=== PATIENT | female | born 1990 | race Caucasian/White ===

== ENCOUNTER 2016-07-22 19:38 | Emergency (ER) | payer MEDICAID ==
[~2016-07-22] VITALS: Ht 154.9 cm; Wt 78.6 kg
[2016-07-22 20:11] VITALS: BP 119/86
== END 2016-07-22 23:30 | disposition left against medical advice (07) ==
LOC: ER 19:42
DX: M25.562 Pain in left knee (principal); M25.561 Pain in right knee; M79.671 Pain in right foot; M79.672 Pain in left foot; Z53.21 Procedure and treatment not carried out due to patient leaving prior to being seen by health care provider

== ENCOUNTER 2017-03-03 09:07 | Emergency (ER) | payer MEDICAID ==
[~2017-03-03] VITALS: Ht 157.5 cm; Wt 84.4 kg
[2017-03-03 09:47] LABS: Basophils # (auto) 0 uL; Basophils % (auto) 0.6 % (0.0-2.0); Eosinophils # (auto) 0.1 uL; Eosinophils % (auto) 1.4 % (0.0-7.0); Hematocrit 38.9 % (36.0-46.0); Lymphocytes # (auto) 2.3 uL; Mean Corpuscular Hemoglobin 28.9 pg (28.0-32.0); Mean Corpuscular Hgb Conc. 33.4 g/dL (32.0-36.0); Mean Corpuscular Volume 86.7 fL (80.0-100.0); Mean Platelet Volume 8.2 fL (6.9-10.8); Monocytes # (auto) 0.6 uL; Monocytes % (auto) 6.9 % (0.0-12.0); Neutrophils # (auto) 5.1 uL; Neutrophils % (auto) 63.1 % (37.0-80.0); Nucleated Red Blood Cells % 0.1 %; Platelet Count (auto) 205 10^3/uL (140-450); Red Cell Distribution Width 13.1 % (11.8-14.3); White Blood Cell 8.1 10^3/uL (4.4-10.8)
[2017-03-03 11:46] VITALS: BP 114/72
== END 2017-03-03 12:06 | disposition home or self-care (01) ==
LOC: ER 09:07
DX: O20.0 Threatened abortion (principal); Z3A.01 Less than 8 weeks gestation of pregnancy
CPT/HCPCS: 36415; 76801; 76817; 84702; 85025

== ENCOUNTER 2017-09-04 11:05 | Observation (INO) | payer MEDICAID | END 2017-09-04 12:42 | disposition home or self-care (01) | DRG 563 | LOC: LDRP 11:05 | PROVIDERS: ADMIT Obstetrics & Gynecology; ATTEND Obstetrics & Gynecology | DX: O60.03 Preterm labor without delivery, third trimester (principal); O26.893 Other specified pregnancy related conditions, third trimester; R10.2 Pelvic and perineal pain; Z3A.32 32 weeks gestation of pregnancy | CPT/HCPCS: 59025; 81002; G0378 ==

== ENCOUNTER 2017-10-06 15:00 | Observation (INO) | payer BC, MEDICAID ==
[~2017-10-06] VITALS: Ht 157.5 cm; Wt 91.2 kg
[2017-10-06] MEDS ORDERED: PREN-96 PO (15:33)
[2017-10-06 16:54] LABS: Basophils # (auto) 0 uL; Basophils % (auto) 0.3 % (0.0-2.0); Lymphocytes # (auto) 2.1 uL; Neutrophils # (auto) 5.5 uL
[2017-10-06 16:56] LABS: Eosinophils # (auto) 0.1 uL; Eosinophils % (auto) 0.6 % (0.0-7.0); Hematocrit 33.9 % (36.0-46.0); Hemoglobin 11.2 g/dL (12.2-16.2); Lymphocytes % (auto) 24.4 % (10.0-50.0); Mean Corpuscular Hemoglobin 26.6 pg (28.0-32.0); Mean Corpuscular Volume 80.5 fL (80.0-100.0); Monocytes # (auto) 0.8 uL; Monocytes % (auto) 9.3 % (0.0-12.0); Neutrophils % (auto) 65.4 % (37.0-80.0); Platelet Count (auto) 219 10^3/uL (140-450); Red Cell Distribution Width 14.6 % (11.8-14.3); White Blood Cell 8.4 10^3/uL (4.4-10.8)
[2017-10-06 17:00] LABS: Urine Bacteria NONE SEEN /hpf (None Seen); Urine Blood Negative /uL (Negative); Urine Mucus FEW (None Seen); Urine Specific Gravity 1.022 (1.001-1.035); Urine WBC 1 /hpf (0 - 5)
[2017-10-06 17:07] LABS: INR 0.94 (0.9-1.15); Partial Thromboplastin Time 25.4 sec (23.78-33.04); Prothrombin Time 10.1 sec (9.27-12.13)
[2017-10-06 17:19] LABS: Alanine Aminotransferase 18 U/L (13-56); Albumin 2.4 g/dL (3.4-5.0); Alkaline Phosphatase 149 U/L (45-117); Anion Gap 8 (5-15); Aspartate Aminotransferase 19 U/L (15-37); BUN/Creatinine Ratio 17.5; Bilirubin, Total < 0.1 mg/dL (0.2-1.0); Blood Urea Nitrogen 7 mg/dL (7-18); Calcium 8.6 mg/dL (8.5-10.1); Carbon Dioxide 23 mmol/L (21-32); Chloride 110 mmol/L (98-107); GFR African American 243 mL/min; GFR Non-African American 201 mL/min; Glucose 87 mg/dL (74-106); Sodium 141 mmol/L (136-145); Total Protein 6.5 g/dL (6.4-8.2); Uric Acid 4.2 mg/dL (2.6-6.0)
== END 2017-10-06 17:40 | disposition home or self-care (01) | DRG 566 ==
LOC: EDBD → LDRP 15:00
PROVIDERS: ADMIT Obstetrics & Gynecology; ATTEND Obstetrics & Gynecology
DX: O26.893 Other specified pregnancy related conditions, third trimester (principal); R10.2 Pelvic and perineal pain; R06.02 Shortness of breath; O12.03 Gestational edema, third trimester; M53.3 Sacrococcygeal disorders, not elsewhere classified; Z3A.37 37 weeks gestation of pregnancy; Z87.891 Personal history of nicotine dependence
CPT/HCPCS: 36415; 59025; 80053; 81001; 81002; 84550; 85025; 85610; 85730; G0378

== ENCOUNTER 2017-10-09 17:45 | Observation (INO) | payer BC, MEDICAID ==
[~2017-10-09 17:45] MED LIST: PREN-96 PO
[2017-10-09 18:50] LABS: Basophils # (auto) 0 uL; Basophils % (auto) 0.3 % (0.0-2.0); Eosinophils # (auto) 0 uL; Lymphocytes # (auto) 1.7 uL; Red Blood Cells 3.94 10^6/uL (4.0-5.20); White Blood Cell 7.4 10^3/uL (4.4-10.8)
[2017-10-09 18:52] LABS: Eosinophils % (auto) 0.5 % (0.0-7.0); Hematocrit 31.2 % (36.0-46.0); Hemoglobin 10.5 g/dL (12.2-16.2); Lymphocytes % (auto) 22.8 % (10.0-50.0); Mean Corpuscular Hemoglobin 26.5 pg (28.0-32.0); Mean Corpuscular Hgb Conc. 33.5 g/dL (32.0-36.0); Mean Corpuscular Volume 79.2 fL (80.0-100.0); Monocytes # (auto) 0.6 uL; Monocytes % (auto) 8.1 % (0.0-12.0); Neutrophils % (auto) 68.3 % (37.0-80.0); Platelet Count (auto) 211 10^3/uL (140-450); Red Cell Distribution Width 14.7 % (11.8-14.3)
[2017-10-09 18:55] LABS: Urine Bacteria NONE SEEN /hpf (None Seen); Urine Blood Negative /uL (Negative); Urine Mucus FEW (None Seen); Urine Specific Gravity 1.026 (1.001-1.035); Urine WBC 2 /hpf (0 - 5)
[2017-10-09 18:57] LABS: INR 0.94 (0.9-1.15); Partial Thromboplastin Time 26.2 sec (23.78-33.04); Prothrombin Time 10.1 sec (9.27-12.13)
[2017-10-09 19:24] LABS: Albumin 2.4 g/dL (3.4-5.0); BUN/Creatinine Ratio 9.8; Bilirubin, Total 0.2 mg/dL (0.2-1.0); Calcium 8.1 mg/dL (8.5-10.1); Potassium 3.5 mmol/L (3.5-5.1); Total Protein 6.3 g/dL (6.4-8.2); Uric Acid 4.1 mg/dL (2.6-6.0)
== END 2017-10-10 19:55 | disposition home or self-care (01) | DRG 566 ==
LOC: EDBD → LDRP 17:45 → UNDODISOB 21:10 → LDRP 10-10 14:13
PROVIDERS: ADMIT Specialist; ATTEND Specialist
DX: O13.3 Gestational [pregnancy-induced] hypertension without significant proteinuria, third trimester (principal); Z3A.37 37 weeks gestation of pregnancy
CPT/HCPCS: 36415; 59025; 76818; 80053; 81001; 81002; 84550; 85025; 85610; 85730; G0378

== ENCOUNTER 2017-10-11 06:00 | Observation (INO) | payer BC, MEDICAID ==
[2017-10-11 07:09] LABS: Protein, Urine 48.9 mg/dL (0.0-11.9)
[2017-10-11 07:13] LABS: 24 Hr. Total Protein, Urine 391.2 mg/24 Hr (<149.1)
== END 2017-10-11 07:50 | disposition home or self-care (01) | DRG 566 ==
LOC: EDBD → LDRP 06:00
PROVIDERS: ADMIT Specialist; ATTEND Specialist
DX: O13.3 Gestational [pregnancy-induced] hypertension without significant proteinuria, third trimester (principal); Z87.891 Personal history of nicotine dependence; Z3A.38 38 weeks gestation of pregnancy
CPT/HCPCS: 59025; 81002; 84156; G0378

== ENCOUNTER 2017-10-13 09:05 | Observation (INO) | payer BC, MEDICAID ==
[2017-10-13 10:15] LABS: Basophils # (auto) 0 uL; Basophils % (auto) 0.5 % (0.0-2.0); Eosinophils # (auto) 0.1 uL; Eosinophils % (auto) 0.8 % (0.0-7.0); Lymphocytes # (auto) 1.7 uL
[2017-10-13 10:18] LABS: Hematocrit 32.1 % (36.0-46.0); Hemoglobin 10.5 g/dL (12.2-16.2); Lymphocytes % (auto) 23.2 % (10.0-50.0); Mean Corpuscular Hgb Conc. 32.6 g/dL (32.0-36.0); Mean Corpuscular Volume 79.6 fL (80.0-100.0); Monocytes # (auto) 0.6 uL; Monocytes % (auto) 8.5 % (0.0-12.0); Neutrophils # (auto) 4.9 uL; Nucleated Red Blood Cells % 0.1 %; Platelet Count (auto) 206 10^3/uL (140-450); Red Blood Cells 4.03 10^6/uL (4.0-5.20); Red Cell Distribution Width 14.4 % (11.8-14.3); White Blood Cell 7.3 10^3/uL (4.4-10.8)
[2017-10-13 10:33] LABS: Urine Bacteria FEW /hpf (None Seen); Urine Blood Negative /uL (Negative); Urine Mucus FEW (None Seen); Urine Specific Gravity 1.025 (1.001-1.035); Urine WBC 60 /hpf (0 - 5)
[2017-10-13 10:34] LABS: INR 0.96 (0.9-1.15); Partial Thromboplastin Time 26.6 sec (23.78-33.04); Prothrombin Time 10.3 sec (9.27-12.13)
[2017-10-13 10:40] LABS: Albumin 2.3 g/dL (3.4-5.0); BUN/Creatinine Ratio 18.4; Bilirubin, Total 0.3 mg/dL (0.2-1.0); Calcium 7.8 mg/dL (8.5-10.1); Potassium 4.1 mmol/L (3.5-5.1); Total Protein 6.1 g/dL (6.4-8.2); Uric Acid 4.4 mg/dL (2.6-6.0)
== END 2017-10-13 11:35 | disposition home or self-care (01) | DRG 782 ==
LOC: EDBD → LDRP 09:05
PROVIDERS: ADMIT Obstetrics & Gynecology; ATTEND Obstetrics & Gynecology
DX: O13.3 Gestational [pregnancy-induced] hypertension without significant proteinuria, third trimester (principal); Z3A.38 38 weeks gestation of pregnancy
CPT/HCPCS: 36415; 59025; 80053; 81001; 81002; 84550; 85025; 85610; 85730; G0378

== ENCOUNTER 2017-10-14 21:46 | Observation (INO) | payer BC, MEDICAID | END 2017-10-15 00:02 | disposition home or self-care (01) | DRG 781 | LOC: EDBD → LDRP 21:46 | PROVIDERS: ADMIT Specialist; ATTEND Specialist | DX: O26.893 Other specified pregnancy related conditions, third trimester (principal); Z3A.38 38 weeks gestation of pregnancy; Z87.891 Personal history of nicotine dependence | CPT/HCPCS: 59025; 81002; G0378 ==

== ENCOUNTER 2017-10-15 21:04 | Inpatient (IN) | payer BC, MEDICAID ==
[~2017-10-15] VITALS: Ht 1 cm; Wt 0.5 kg
[2017-10-15] MEDS: LACTATED RINGER'S 1,000 ML IV SCH (21:07)
[2017-10-15] MEDS ORDERED: LACT. RINGERS/OXYTOCIN 20UNITS 1,000 ML IV SCH (21:07)
[2017-10-15] MEDS ORDERED: PHISODERM TOP SOLN 240ML BTL TOP PRN (21:15)
[2017-10-15] MEDS ORDERED: PENICILLIN G POT 5MIL/D5 50ML 50 ML IV ONE (21:15)
[2017-10-15] MEDS ORDERED: DERMOPLAST 60ML BOTTLE TOP PRN (21:15)
[2017-10-15] MEDS ORDERED: NALBUPHINE HCL 10 MG/1ml INJECTION IV PRN (21:15)
[2017-10-15] MEDS ORDERED: LIDOCAINE 2% (LOCAL ANESTH.) PF 5ml SDV ID ONE (21:15)
[2017-10-15] MEDS ORDERED: METHYLERGONOVINE MALEATE 0.2 MG/ML AMP IM PRN (21:15)
[2017-10-15] MEDS ORDERED: WITCH HAZEL-GLYCERIN PAD TOP PRN (21:15)
[2017-10-15 22:14] LABS: Alcohol, Urine < 3.0 mg/dL (0-5); Amphetamine Screen, Urine NEGATIVE (NEGATIVE); Barbiturate Scree,Urine NEGATIVE (NEGATIVE); Benzodiazephine Screen, Urine NEGATIVE (NEGATIVE); Cannabinoid Screen, Urine NEGATIVE (NEGATIVE); Cocaine Screen, Urine NEGATIVE (NEGATIVE); Opiate Scree,Urine NEGATIVE (NEGATIVE); Phencyclidine Screen, Urine NEGATIVE (NEGATIVE)
[2017-10-15 22:16] LABS: Albumin 2.3 g/dL (3.4-5.0); BUN/Creatinine Ratio 15.2; Bilirubin, Total 0.1 mg/dL (0.2-1.0); Calcium 8.4 mg/dL (8.5-10.1); INR 0.93 (0.9-1.15); Partial Thromboplastin Time 25.9 sec (23.78-33.04); Potassium 3.8 mmol/L (3.5-5.1); Total Protein 6.1 g/dL (6.4-8.2); Uric Acid 4.5 mg/dL (2.6-6.0)
[2017-10-15 22:20] LABS: Basophils # (auto) 0 uL; Basophils % (auto) 0.2 % (0.0-2.0); Eosinophils # (auto) 0.1 uL; Eosinophils % (auto) 0.7 % (0.0-7.0); Lymphocytes # (auto) 2.4 uL
[2017-10-15 22:22] LABS: Urine Bacteria FEW /hpf (None Seen); Urine Blood Negative /uL (Negative); Urine Mucus FEW (None Seen); Urine Specific Gravity 1.027 (1.001-1.035); Urine WBC 1 /hpf (0 - 5)
[2017-10-15 22:23] LABS: Hematocrit 30.4 % (36.0-46.0); Lymphocytes % (auto) 28.3 % (10.0-50.0); Mean Corpuscular Hemoglobin 26.3 pg (28.0-32.0); Mean Corpuscular Volume 79.6 fL (80.0-100.0); Monocytes # (auto) 0.7 uL; Monocytes % (auto) 8.5 % (0.0-12.0); Neutrophils # (auto) 5.2 uL; Neutrophils % (auto) 62.3 % (37.0-80.0); Nucleated Red Blood Cells % 0.1 %; Platelet Count (auto) 194 10^3/uL (140-450); Red Blood Cells 3.82 10^6/uL (4.0-5.20); Red Cell Distribution Width 15.1 % (11.8-14.3); White Blood Cell 8.4 10^3/uL (4.4-10.8)
[2017-10-15] MEDS: LABETALOL HCL 200 MG TAB PO SCH (23:04)
[2017-10-16] MEDS: PENICILLIN G POTASSIUM 2,500,000 UNITS in D5W 5% 50 ML IV SCH ×6 (02:01→21:17)
[2017-10-16] MEDS: LACTATED RINGER'S 1,000 ML IV SCH ×3 (07:00→22:00)
[2017-10-16] MEDS: LABETALOL HCL 200 MG TAB PO SCH ×2 (10:00→21:50)
[2017-10-16] MEDS ORDERED: hydrALAZINE HCL 20 MG/ML VL IV ONE (11:30)
[2017-10-16] MEDS ORDERED: LACT. RINGERS/OXYTOCIN 20UNITS 1,000 ML IV SCH (11:35)
[2017-10-16] MEDS ORDERED: TERBUTALINE SULFATE 1 MG/ML 1ML VIAL SC PRN (11:45)
[2017-10-16] MEDS: hydrALAZINE HCL 20 MG/ML VL IV PRN (15:05)
[2017-10-17] VITALS (32 sets, daily range): BP systolic 113–160; BP diastolic 55–101
[2017-10-17] MEDS: PENICILLIN G POTASSIUM 2,500,000 UNITS in D5W 5% 50 ML IV SCH (02:53)
[2017-10-17] MEDS ORDERED: hydrALAZINE HCL 20 MG/ML VL ONE (03:23)
[2017-10-17] MEDS: hydrALAZINE HCL 20 MG/ML VL IV PRN (03:29)
[2017-10-17] MEDS ORDERED: ePHEDrine SULFATE 50 MG/ML AMP IV ONE ×2 (03:30→05:00)
[2017-10-17] MEDS ORDERED: fentaNYL CITRATE 100 MCG/2 ML VL IV ONE (03:30)
[2017-10-17] MEDS ORDERED: NALOXONE HCL 0.4 MG/ML VIAL IV ONE ×2 (03:30→05:00)
[2017-10-17] MEDS ORDERED: fentaNYL W ROPIVACAINE 150 ML EPI SCH ×2 (03:30→05:00)
[2017-10-17] MEDS ORDERED: LIDOCAINE HCL 2 %PF INJ 10ML AMP IJ ONE (03:30)
[2017-10-17] MEDS ORDERED: NALOXONE HCL 0.4 MG/ML VIAL ONE (03:48)
[2017-10-17] MEDS ORDERED: ePHEDrine SULFATE 50 MG/ML AMP ONE (03:48)
[2017-10-17] MEDS ORDERED: MAGNESIUM SULFATE 100 ML IV ONE ×2 (03:49→04:00)
[2017-10-17] MEDS ORDERED: fentaNYL W ROPIVACAINE 150 ML EPI ONE (03:49)
[2017-10-17] MEDS ORDERED: MAGNESIUM SULFATE 40MG/ML 1,000 ML IV ONE (03:50)
[2017-10-17] MEDS ORDERED: SODIUM CHLORIDE 0.9% 500 ML IV PRN (04:53)
[2017-10-17] MEDS: MAGNESIUM SULFATE 40MG/ML 1,000 ML IV SCH ×2 (04:53→06:30)
[2017-10-17 05:07] LABS: RPR Non Reactive (Non Reactive)
[2017-10-17] MEDS ORDERED: LIDOCAINE 2%HCL (LOCAL ANESTH.) INJ 20ML MDV ONE (05:30)
[2017-10-17] MEDS: LACTATED RINGER'S 1,000 ML IV SCH (06:30)
[2017-10-17] MEDS ORDERED: ACETAMINOPHEN 325 MG TAB PO PRN (09:00)
[2017-10-17] MEDS ORDERED: ONDANSETRON HCL 4 MG/2 ML VIAL IV PRN (09:00)
[2017-10-17] MEDS: IBUPROFEN 600 MG TAB PO PRN ×3 (09:09→18:44)
[2017-10-17] MEDS: LABETALOL HCL 200 MG TAB PO SCH (10:14)
[2017-10-18] VITALS (18 sets, daily range): BP systolic 107–160; BP diastolic 60–97
[2017-10-18] MEDS ORDERED: LABETALOL HCL 200 MG TAB ONE (00:29)
[2017-10-18] MEDS: LABETALOL HCL 200 MG TAB PO SCH ×3 (00:31→22:00)
[2017-10-18] MEDS: MAGNESIUM SULFATE 40MG/ML 1,000 ML IV SCH (01:38)
[2017-10-18] MEDS: IBUPROFEN 600 MG TAB PO PRN (06:55)
[2017-10-18] MEDS ORDERED: LABETALOL HCL 200 MG TAB PO ONE (15:15)
[2017-10-18] MEDS ORDERED: LAB200T PO (15:36)
[2017-10-18] MEDS ORDERED: hydrALAZINE HCL 20 MG/ML VL ONE (17:25)
[2017-10-18] MEDS ORDERED: hydrALAZINE HCL 20 MG/ML VL IV ONE (17:30)
[2017-10-19 03:00] VITALS: BP 154/86
[2017-10-19] MEDS: LABETALOL HCL 200 MG TAB PO SCH (03:12)
[2017-10-19 06:41] VITALS: BP 151/84
[2017-10-19 07:53] VITALS: BP 133/80
== END 2017-10-19 10:20 | disposition home or self-care (01) | DRG 775 ==
LOC: LDRP 21:04
PROVIDERS: ADMIT Specialist; ATTEND Specialist
PROC: 3E033VJ Introduction of Other Hormone into Peripheral Vein, Percutaneous Approach (ICD-10-PCS; 2017-10-16)
PROC: 0KQM0ZZ Repair Perineum Muscle, Open Approach (ICD-10-PCS; principal; 2017-10-17)
PROC: 10E0XZZ Delivery of Products of Conception, External Approach (ICD-10-PCS; 2017-10-17)
PROC: 3E0R3BZ Introduction of Anesthetic Agent into Spinal Canal, Percutaneous Approach (ICD-10-PCS; 2017-10-17)
PROC: 00HU33Z Insertion of Infusion Device into Spinal Canal, Percutaneous Approach (ICD-10-PCS; 2017-10-17)
DX: O14.94 Unspecified pre-eclampsia, complicating childbirth (principal); Z37.0 Single live birth; Z3A.38 38 weeks gestation of pregnancy; O13.4 Gestational [pregnancy-induced] hypertension without significant proteinuria, complicating childbirth; O69.81X0 Labor and delivery complicated by cord around neck, without compression, not applicable or unspecified; O70.1 Second degree perineal laceration during delivery; O99.824 Streptococcus B carrier state complicating childbirth
CPT/HCPCS: 36415; 51702; 59025; 59409; 62282; 80053; 80307; 81001; 83735; 84550; 85025; 85610; 85730; 86592; 86850; 86900; 86901; 96361; 96365; 96366; 96374; 96375; J2540; J2590; J3010; J7060